=== PATIENT | female | born 1955 | race Caucasian/White ===

== ENCOUNTER 2022-10-23 16:05 | Inpatient (IN) | payer MEDICARE, OTHER ==
[~2022-10-23] VITALS: Ht 152.4 cm; Wt 40.8 kg
--- NOTE | 2022-10-23 16:20 | NUR ---
RECEIVED PT 67 YRS FEMALE CAME FROM HOME BY FARAZ C/O SOB FOR 2 DAYS PT ON HD
--- NOTE | 2022-10-23 16:25 | NUR ---
AV SHUNT ON LT LOWER ARM WITH GOOD BRUITE
--- NOTE | 2022-10-23 16:40 | NUR ---
TO RADULOGY FOR C XRAY
--- NOTE | 2022-10-23 16:40 | NUR ---
Yessy ayala in [facility] - 10/23/22 at [address] SCAN
--- NOTE | 2022-10-23 17:30 | NUR ---
SIM MACIAS SENT TO LAB
--- NOTE | 2022-10-23 17:45 | NUR ---
BLOOD DROW AND SENT TO LAB
[2022-10-23 18:29] LABS: BASOPHILS % (AUTO) 0.6 % (0.0-2.0); HEMATOCRIT 29 % (33-45); HEMOGLOBIN 9.2 g/dL (11.5-14.8); LYMPHOCYTES # (AUTO) 0.6 K/uL (0.8-4.8); LYMPHOCYTES % (AUTO) 8.8 % (20.0-44.0); MEAN CORPUSCULAR HGB CONC 31 g/dl (31.0-36.0); MEAN CORPUSCULAR VOLUME 106 fL (82-100); MONOCYTES # (AUTO) 0.5 K/uL (0.1-1.30); MONOCYTES % (AUTO) 7.4 % (2.0-12.0); NEUTROPHILS # (AUTO) 5.5 K/uL (1.8-8.9); NEUTROPHILS % (AUTO) 81.2 % (43.0-81.0); PLATELET COUNT (AUTO) 191 K/uL (150-450); RED BLOOD CELL COUNT(AUTO) 2.78 MIL/uL (4.0-5.2); WHITE BLOOD COUNT (AUTO) 6.8 K/uL (4.3-11.0)
[2022-10-23 19:08] LABS: ALANINE AMINOTRANSFERASE 9 U/L (12-78); ALBUMIN 2.7 g/dL (3.4-5.0); ALKALINE PHOSPHATASE 117 U/L (46-116); ASPARTATE AMINOTRANSFERASE 16 U/L (15-37); BILIRUBIN,DIRECT 0.1 mg/dL (0.0-0.2); BILIRUBIN,TOTAL 0.3 mg/dL (0.2-1.0); CALCIUM, SERUM 8.9 mg/dL (8.5-10.1); CARBON DIOXIDE 31 mmol/L (21-32); CHLORIDE 105 mmol/L (98-107); CREATININE 2.1 mg/dL (0.6-1.3); GLUCOSE 104 mg/dL (74-106); POTASSIUM 3.4 mmol/L (3.5-5.1); SODIUM SERUM 141 mmol/L (136-145); TOTAL PROTEIN, SERUM 5.9 g/dL (6.4-8.2); UREA NITROGEN, BLOOD 40 mg/dL (7-18)
--- NOTE | 2022-10-23 19:17 | NUR ---
RESTING AND ASLEEPY NO PAIN
--- NOTE | 2022-10-23 19:24 | NUR ---
Yessy ayala in [facility] - 10/23/22 at 1928 by MADELYN JACQUIE WOLFF RN
--- NOTE | 2022-10-23 19:28 | NUR ---
HAND OFF WALLY DYE
[2022-10-23] MEDS ORDERED: LEVOFLOXACIN 750 MG /D5W 150ML PIGGYBACK IV ONE (19:30)
--- NOTE | 2022-10-23 19:46 | NUR ---
RECEIVED REPORT FROM MARNIE NARANJO, PATIENT CAME WITH CC SOB. PATIENT IS IN RA. WITH IV CANNULA G18 ON LEFT AC. ATTACHED TO MONITOR. VITALS CHECKED.
[2022-10-23] MEDS ORDERED: LEVOFLOXACIN 750 MG /D5W 150ML 750 MG in PREMIX 1 EA IV SCH ×2 (20:00→20:45)
[2022-10-23] MEDS ORDERED: Z GUARD REMEDY 4 OZ OINT TP PRN ×2 (20:00→20:45)
[2022-10-23] MEDS ORDERED: ACETAMINOPHEN 325 MG TABLET PO PRN ×2 (20:00→20:45)
[2022-10-23] MEDS ORDERED: ONDANSETRON HCL/PF 4 MG/2 ML VIAL IVP PRN ×2 (20:00→20:45)
[2022-10-23] MEDS ORDERED: ENOXAPARIN SODIUM 30 MG/0.3 ML DISP.SYRIN SQ SCH (20:00)
[2022-10-23] MEDS ORDERED: IPRATROPIUM NEB FS 0.5 MG/2.5 ML AMPUL.NEB NEB PRN ×2 (20:00→20:45)
[2022-10-23] MEDS ORDERED: ALBUTEROL FS 2.5 MG/0.5 ML VIAL.NEB NEB PRN ×2 (20:00→20:45)
[2022-10-23] MEDS ORDERED: FUROSEMIDE 40 MG/4 ML VIAL IV SCH (20:00)
[2022-10-23] MEDS ORDERED: HYDROCODONE/APAP 5/325MG TABLET PO PRN ×2 (20:00→20:45)
[2022-10-23] MEDS ORDERED: LEVOFLOXACIN 750 MG /D5W 150ML 150 ML IV ONE (20:07)
--- NOTE | 2022-10-23 20:29 | NUR ---
Yessy ayala in [facility] - 10/23/22 at 2040 by ALONZO TRANSFERRED PATIENT TO ROOM
--- NOTE | 2022-10-23 20:43 | NUR ---
US TECH AT PT'S BEDSIDE
--- NOTE | 2022-10-23 22:03 | NUR ---
SEEN BY TALIB ROWE AT BEDSIDE
[2022-10-23 22:19] LABS: BAND % (MANUAL) 13 % (0.0-5.0); LYMPHOCYTES % (MANUAL) 17 % (16-48); MONOCYTES % (MANUAL) 13 % (0-11.0); NEUTROPHILS % (MANUAL) 57 (42-76)
--- NOTE | 2022-10-24 00:22 | NUR ---
CALLED RT FOR BIPAP MACHINE
--- NOTE | 2022-10-24 01:05 | NUR ---
REPORT GIVEN TO MARNIE STANLEY
--- NOTE | 2022-10-24 01:21 | NUR ---
COVID PCR DONE AND SENT TO LAB
--- NOTE | 2022-10-24 01:33 | NUR ---
FAMILY DOESNT WANT PATIENT TO BE GIVEN NORCO.
--- NOTE | 2022-10-24 02:18 | NUR ---
CALLED ELIO. PATIENT IS TO BE ADMITTED TO RM 114 INSTEAD OF 101. RN LIZETH IS ASKING ADDITIONAL 30 MINS FOR THE WAIT. RT REJI BEING CALLED, FAMILY WANT TO TALK TO HER
[2022-10-24] MEDS ORDERED: VANCOMYCIN 1.5 GM in IV D5W 500ml IV ONE (03:30)
--- NOTE | 2022-10-24 03:50 | NUR ---
RN ADMITTING NOTE RECEIVED PATIENT FROM ER VIA CHAZ ACCOMPANIED BY RN AND EMT, PT IS AAO X 4, BURUNDIAN SPEAKING ONLY, IN NO ACUTE DISTRESS, ON 2L VIA NC, SATURATION AT 99%, SR ON THE MONITOR, HR IS 83. IV LINE AT LFA 18G PATENT AND FLUSHING WELL, R ARM AV FISTULA IN PLACE, BRUIT AND THRILL NOTED. PATIENT IS ANURIC. COMPREHENSIVE ASSESSMENT DONE, WOUNDS NOTED AT SACRUM, DTI AT L HIP, AND DTI AT R KNEE. REFERRED FOR WOUND CONSULT. SAFETY MEASURES IN PLACE, BED IS LOCKED AND AT LOWEST POSITION, HOB ELEVATED, CALL LIGHT WITHIN REACH OF PATIENT. WILL CONTINUE TO [id number] AND CARRY OUT MD ORDERS.
--- NOTE | 2022-10-24 03:59 | NUR ---
TRANSFERRED TO ROOM VIA ACLS
[2022-10-24 04:00] VITALS: BP 156/60
[2022-10-24] MEDS ORDERED: VANCOMYCIN 1 GM VIAL ONE (04:35)
[2022-10-24] MEDS: ENOXAPARIN SODIUM 30 MG/0.3 ML DISP.SYRIN SQ SCH ×2 (04:40→21:52)
--- NOTE | 2022-10-24 05:40 | NUR ---
RT Late Entry Spoke with patients daughter several times at ER bedside regarding Noc Bipap use. awaited patient to be admitted and placed in room. Bipap settings are unknown by daughter or patient at this time.
--- NOTE | 2022-10-24 05:59 | NUR ---
RT RT just made aware patient was brought to room 114-1, Bipap set up and placed patient on Bipap. MARNIE Daly informed.
[2022-10-24] MEDS ORDERED: PANTOPRAZOLE 40 MG TABLET.DR PO SCH (07:30)
--- NOTE | 2022-10-24 07:30 | NUR ---
RN NOTE RECEIVED PATIENT IN BED RESTING ALERT ORIENTED X4 VERBALLY RESPONSIVE ON 2L OXYGEN VIA NASAL CANNULA O2:96% AT NIGHT TIME BIPAP.IV SITE IS ON LEFT FOREARM INTACT PATENT AND RIGHT ARM AV SHUNT.CONTIENT BOWEL,SAFETY MEASURE IMPLEMENT BED IN LOW POSITION AND LOCKED,CALL LIGHT WITHIN REACH,HEAD OF THE BED ELEVATED, CONTINUE TO MONITOR.
[2022-10-24 08:00] VITALS: BP 140/66
--- NOTE | 2022-10-24 08:00 | NUR ---
RECEIVED PATIENT IS ON BIPAP, AWAKE, ALERT, ORIENTEDX3, NO COMPLAINT OF PAIN, NO SIGNS OF IN DISTRESS.
[2022-10-24] MEDS: PANTOPRAZOLE 40 MG TABLET.DR PO SCH (08:08)
[2022-10-24] MEDS ORDERED: IPRA3AMP23 NEB (08:51)
[2022-10-24] MEDS ORDERED: MYCO500T5 PO (08:51)
[2022-10-24] MEDS ORDERED: PYRI-7 PO (08:51)
[2022-10-24] MEDS ORDERED: DOCU-141 PO (08:51)
[2022-10-24] MEDS ORDERED: AZIT250T13 PO (08:51)
[2022-10-24] MEDS ORDERED: GUAI100S11 PO (08:51)
[2022-10-24] MEDS ORDERED: ACET-868 PO (08:51)
[2022-10-24] MEDS ORDERED: VALS160T29 PO (08:51)
[2022-10-24] MEDS ORDERED: ASPI-1169 PO (08:51)
[2022-10-24] MEDS ORDERED: NIFE90TA38 PO (08:51)
[2022-10-24] MEDS ORDERED: CHOL100043 PO (08:51)
[2022-10-24] MEDS ORDERED: CLON0.3P TD (08:51)
[2022-10-24] MEDS ORDERED: FOLI0.4T6 PO (08:51)
[2022-10-24] MEDS ORDERED: FOLI0.8T2 PO (08:51)
[2022-10-24] MEDS ORDERED: EPOE1VIA7 SQ (08:51)
[2022-10-24] MEDS ORDERED: HYDR100T27 PO (08:51)
[2022-10-24] MEDS ORDERED: MINO2.5T PO (08:51)
[2022-10-24] MEDS ORDERED: SEVE800T8 PO (08:51)
[2022-10-24] MEDS ORDERED: LIDO30AD10 TP (08:51)
[2022-10-24] MEDS ORDERED: LEVO150T8 PO (08:51)
[2022-10-24] MEDS ORDERED: CARV6.252 PO (08:51)
[2022-10-24] MEDS ORDERED: COLL30OI TP (08:51)
[2022-10-24] MEDS: FUROSEMIDE 40 MG/4 ML VIAL IV SCH (09:12)
[2022-10-24 12:00] VITALS: BP 165/61
[2022-10-24 16:00] VITALS: BP 149/64
--- NOTE | 2022-10-24 18:19 | NUR ---
RN NOTE PATIENT REMAINS ALERT ORIENTED X4 VERBALLY RESPONSIVE ON 2L OXYGEN VIA NASAL CANNULA O2:96% NO SOB NOT ACUTE DISTRESS NOTED,ALL DUE MEDS GIVEN MD ORDERED KEPT CLEAN AND DRY ALL THE TIME,KEPT CALL LIGHT WITHIN REACH WILL ENDORSE NEXT COMING SHIFT FOR CONTINUATION OF CARE.
--- NOTE | 2022-10-24 19:15 | NUR ---
RN ADMITTING NOTE PATIENT IN BED, AAO X 4, CROATIAN SPEAKING ONLY, IN NO ACUTE DISTRESS, ON 2L VIA NC, SATURATION AT 97%, SR ON THE MONITOR, HR IS 91. IV LINE AT LFA 18G PATENT AND FLUSHING WELL, R ARM AV FISTULA IN PLACE, BRUIT AND THRILL NOTED. PATIENT IS ANURIC. SAFETY MEASURES IN PLACE, BED IS LOCKED AND AT LOWEST POSITION, HOB ELEVATED, CALL LIGHT WITHIN REACH OF PATIENT. WILL CONTINUE TO [id number] AND CARRY OUT MD ORDERS.
[2022-10-24 20:00] VITALS: BP 160/66
[2022-10-25] VITALS (7 sets, daily range): BP systolic 110–170; BP diastolic 47–70
[2022-10-25 07:06] LABS: BASOPHILS # (AUTO) 0.1 K/uL (0.0-0.2); BASOPHILS % (AUTO) 1.3 % (0.0-2.0); HEMATOCRIT 28 % (33-45); HEMOGLOBIN 8.6 g/dL (11.5-14.8); LYMPHOCYTES # (AUTO) 0.7 K/uL (0.8-4.8); LYMPHOCYTES % (AUTO) 17.4 % (20.0-44.0); MEAN CORPUSCULAR HGB CONC 30 g/dl (31.0-36.0); MEAN CORPUSCULAR VOLUME 106 fL (82-100); MONOCYTES # (AUTO) 0.4 K/uL (0.1-1.30); NEUTROPHILS # (AUTO) 2.6 K/uL (1.8-8.9); NEUTROPHILS % (AUTO) 67.3 % (43.0-81.0); PLATELET COUNT (AUTO) 159 K/uL (150-450); RED BLOOD CELL COUNT(AUTO) 2.68 MIL/uL (4.0-5.2); WHITE BLOOD COUNT (AUTO) 3.9 K/uL (4.3-11.0)
--- NOTE | 2022-10-25 07:18 | NUR ---
RN notes Received patient in bed. She is resting without active complaint. Telemetry showed SR with HR 66/min. IV site is dry and intact. Call schroeder is placed within reach. Bed is locked and placed in the lowest position. All safety measures have been implemented. Will continue monitoring and care.
[2022-10-25 07:40] LABS: ALBUMIN 2.5 g/dL (3.4-5.0); BILIRUBIN,TOTAL 0.3 mg/dL (0.2-1.0); CALCIUM, SERUM 8.7 mg/dL (8.5-10.1); CREATININE 3.9 mg/dL (0.6-1.3); MAGNESIUM 2.4 mg/dL (1.8-2.4); PHOSPHORUS 6.8 mg/dL (2.5-4.9); POTASSIUM 4.9 mmol/L (3.5-5.1); TOTAL PROTEIN, SERUM 5.5 g/dL (6.4-8.2)
[2022-10-25] MEDS ORDERED: VANCOMYCIN 500 MG in IV D5W 100 ML IV PRN (08:00)
[2022-10-25] MEDS: PANTOPRAZOLE 40 MG TABLET.DR PO SCH (08:06)
[2022-10-25] MEDS: FUROSEMIDE 40 MG/4 ML VIAL IV SCH (09:44)
--- NOTE | 2022-10-25 11:00 | NUR ---
RN notes Patient's blood pressure is high, 170/70mmHg. Noted that home medications have not been reconciliated yet. Informed Dr. Maynard.
[2022-10-25 12:18] LABS: EOSINOPHILS % (MANUAL) 3 % (0-4); LYMPHOCYTES % (MANUAL) 20 % (16-48); MONOCYTES % (MANUAL) 7 % (0-11.0); NEUTROPHILS % (MANUAL) 70 (42-76)
[2022-10-25] MEDS ORDERED: ACETAMINOPHEN 325 MG TABLET PO PRN (14:00)
[2022-10-25] MEDS ORDERED: DOCUSATE SODIUM 100 MG CAPSULE PO PRN (14:00)
[2022-10-25] MEDS: VALSARTAN 80 MG TABLET PO SCH ×2 (14:09→16:12)
[2022-10-25] MEDS: MINOXIDIL (2.5MG) 2.5 MG TABLET PO SCH ×2 (14:10→16:13)
[2022-10-25] MEDS: CARVEDILOL 6.25 MG TABLET PO SCH ×2 (14:11→16:12)
[2022-10-25] MEDS: NIFEdipine XL (30MG) 30 MG TAB PO SCH (14:11)
[2022-10-25] MEDS: hydrALAZINE HCL 50 MG TABLET PO SCH ×2 (14:11→16:12)
--- NOTE | 2022-10-25 14:21 | NUR ---
RN notes Medications have been reconciliated. Her usual antihypertensives have been administered. Will recheck blood pressure in an hour.
[2022-10-25] MEDS ORDERED: IPRATROPIUM/ALBUTEROL INHALER IH PRN (14:30)
--- NOTE | 2022-10-25 15:34 | NUR ---
RN notes Rechecked blood pressure, 110/48mmHg. P 80/min. No discomfort reported.
--- NOTE | 2022-10-25 17:30 | NUR ---
RN notes Patient complained SOB. Noted lip cyanosis and SpO2 was only 80% with 2L oxygen via NC, RR 25/min. Increased oxygen to 8L and Spo2 gradually increased to 95%. Decreased oxygen to 5L oxygen via facemask.
[2022-10-25] MEDS: SEVELAMER CARBONATE 800 MG TABLET PO SCH (17:34)
--- NOTE | 2022-10-25 18:00 | NUR ---
RN note Consent for HD is obtained from patient. Patient's SpO2 was 94% with 5L oxygen, RR 20/min.
--- NOTE | 2022-10-25 18:45 | NUR ---
RN notes Patient is resting without signs of distress. Telemetry showed SR with HR 82/min. IV site is dry and intact. Call schroeder is placed within reach. Bed is locked and placed in the lowest position. All safety measures have been implemented. Will continue monitoring and care.
--- NOTE | 2022-10-25 19:30 | NUR ---
RN notes RECEIVED PT IN BED AWAKE. A/O X3, ALBANIAN SPEAKING. ON NC 3L, TOLERATING WELL, NO S/S OF DISTRESS. IV ACCESS SITE DRY AND INTACT. CALL LIGHT WITH REACH, ALL SAFETY MEASURES IMPLEMENTED. WILL CONTINUE TO MONITOR FOR NATALYA.
--- NOTE | 2022-10-25 20:20 | NUR ---
RN NOTE PT PLACED ON NOC BIPAP, SEE RT NOTES FOR SETTINGS
[2022-10-25] MEDS: LEVOFLOXACIN 500 MG /D5W 100ML 500 MG in PREMIX 1 EA IV SCH (21:17)
[2022-10-25] MEDS: ENOXAPARIN SODIUM 30 MG/0.3 ML DISP.SYRIN SQ SCH (21:19)
[2022-10-26] VITALS: BP 163/86
[2022-10-26] MEDS: CLONIDINE HCL 0.1 MG TABLET PO PRN ×2 (02:20→21:16)
[2022-10-26 04:00] VITALS: BP 176/69
--- NOTE | 2022-10-26 04:10 | NUR ---
RN NOTE DIALYSIS HAS STARTED
--- NOTE | 2022-10-26 06:00 | NUR ---
RN NOTE PER LENKA WITH DIALYSIS. VANCO TROUGH WILL HAVE TO BE DRAWN AT 0900. SO HOLD OF ON VANCO.
--- NOTE | 2022-10-26 06:41 | NUR ---
RN CLOSING NOTE PT SLEEPING IN BED. NO SIGNIFICANT CHANGE T/O THE NIGHT. VS STABLE. ALL DUE MEDS GIVEN. PM CARE DONE, TURN AND REPOSITIONED. WILL ENDORSE TO AM SHIFT FOR NATALYA.
--- NOTE | 2022-10-26 07:00 | NUR ---
RN notes RECEIVED PT ON BED AWAKE. A/O X3, MAORI SPEAKING. RECEIVING HD , ON NC 2L, TOLERATING WELL, O2 SAT WNL, NO S/S OF DISTRESS. IV ACCESS SITE DRY AND INTACT. CALL LIGHT WITH REACH, ALL SAFETY MEASURES IMPLEMENTED. BED LOCKED AND IN LOWEST POSITION, WILL CONTINUE TO MONITOR .
[2022-10-26 08:00] VITALS: BP 168/76
[2022-10-26] MEDS: VIT B CMPLX 3/FA/VIT C/BIOTIN 1 TAB TABLET PO SCH (08:13)
[2022-10-26] MEDS: PYRIDOXINE HCL 50 MG TABLET PO SCH (08:13)
[2022-10-26] MEDS: VALSARTAN 80 MG TABLET PO SCH ×2 (08:13→16:59)
[2022-10-26] MEDS: ASPIRIN 81 MG TAB.CHEW PO SCH (08:13)
[2022-10-26] MEDS: SEVELAMER CARBONATE 800 MG TABLET PO SCH ×3 (08:13→17:03)
[2022-10-26] MEDS: NIFEdipine XL (30MG) 30 MG TAB PO SCH (08:14)
[2022-10-26] MEDS: MINOXIDIL (2.5MG) 2.5 MG TABLET PO SCH ×2 (08:14→16:59)
[2022-10-26] MEDS: hydrALAZINE HCL 50 MG TABLET PO SCH ×3 (08:15→16:59)
[2022-10-26] MEDS: LEVOTHYROXINE SODIUM 75 MCG TABLET PO SCH (08:15)
[2022-10-26] MEDS: CHOLECALCIFEROL 1,000 UNIT TABLET (VIT D3) PO SCH (08:15)
[2022-10-26] MEDS: PANTOPRAZOLE 40 MG TABLET.DR PO SCH (08:15)
[2022-10-26] MEDS: CARVEDILOL 6.25 MG TABLET PO SCH ×2 (08:16→16:59)
[2022-10-26] MEDS: FUROSEMIDE 40 MG/4 ML VIAL IV SCH (08:16)
[2022-10-26] MEDS: FOLIC ACID 1 MG TABLET PO SCH (08:16)
[2022-10-26] MEDS: MYCOPHENOLATE MOFETIL 250 MG CAPSULE PO SCH (09:15)
[2022-10-26 09:36] LABS: CREATININE 2.5 mg/dL (0.6-1.3); POTASSIUM 3.4 mmol/L (3.5-5.1)
--- NOTE | 2022-10-26 11:42 | NUR ---
WOUND CARE CONSULT: REVIEWED CHART, NURSING DOCUMENTATION AND PHOTOS WHICH INDICATE SACRAL STAGE 4 PRESSURE ULCER, AND LEFT HIP INTACT DEEP TISSUE INJURY, PRESENT ON ADMISSION. DR NAVYA LILLY CALLED FOR SURGICAL CONSULT. DISCUSSED SKIN PROTECTION WITH NURSING STAFF. IN AGREEMENT WITH PLAN OF CARE.
[2022-10-26 12:00] VITALS: BP 119/55
[2022-10-26] MEDS: DAKINS QUARTER STRENGTH (0.125%) 480 ML BOTTLE TOP SCH (14:09)
[2022-10-26] MEDS: EPOETIN ALFA-EPBX 10,000 UNIT/ML VIAL SQ SCH (14:33)
[2022-10-26] MEDS ORDERED: NEPRO VAN 237 ML CAN PO PRN (15:00)
[2022-10-26 16:00] VITALS: BP 139/54
--- NOTE | 2022-10-26 18:00 | NUR ---
RN NOTES NO SIGNIFICANT CHANGES NOTED ON THIS SHIFT, WILL ENDORSE TO EDUCATIONAL RESOURCE CENTER TEACHER NURSE FOR CONTINUITY OF CARE .
--- NOTE | 2022-10-26 19:30 | NUR ---
PIPE STEM ALIGNER OPENING NOTE RECEIVED PT IN BED AWAKE. A/O X3, MONGOLIAN SPEAKING. ON NC 2L, TOLERATING WELL, NO S/S OF DISTRESS.TELE MONITOR READING SR. IV ACCESS LFA, INTACT AND PATENT. PT ALSO HAS R AVF.ALL SAFETY MEASURES IN PLACE: BED LOCKED AND IN LOWEST POSITION, CALL LIGHT WITHIN REACH, SIDE RAILS UP, BED ALARM ON.WILL CONTINUE TO MONITOR FOR NATALYA.
[2022-10-26 20:00] VITALS: BP 156/43
[2022-10-26] MEDS: ENOXAPARIN SODIUM 30 MG/0.3 ML DISP.SYRIN SQ SCH (21:53)
[2022-10-27] VITALS: BP 107/45
[2022-10-27 04:00] VITALS: BP 141/59
--- NOTE | 2022-10-27 06:45 | NUR ---
AREA DIRECTOR CLOSING NOTES NO SIGNIFICANT CHANGES NOTED ON THIS SHIFT, WILL ENDORSE TO MORNING SHIFT NURSE FOR CONTINUITY OF CARE .
[2022-10-27 07:41] LABS: BASOPHILS % (AUTO) 0.3 % (0.0-2.0); EOSINOPHILS % (AUTO) 0.4 % (0.0-6.0); HEMATOCRIT 34 % (33-45); HEMOGLOBIN 10.3 g/dL (11.5-14.8); LYMPHOCYTES # (AUTO) 0.8 K/uL (0.8-4.8); LYMPHOCYTES % (AUTO) 7.1 % (20.0-44.0); MEAN CORPUSCULAR HGB CONC 31 g/dl (31.0-36.0); MEAN CORPUSCULAR VOLUME 105 fL (82-100); MONOCYTES # (AUTO) 0.6 K/uL (0.1-1.30); MONOCYTES % (AUTO) 5.1 % (2.0-12.0); NEUTROPHILS # (AUTO) 9.4 K/uL (1.8-8.9); NEUTROPHILS % (AUTO) 87.1 % (43.0-81.0); PLATELET COUNT (AUTO) 145 K/uL (150-450); WHITE BLOOD COUNT (AUTO) 10.8 K/uL (4.3-11.0)
[2022-10-27] MEDS: LEVOTHYROXINE SODIUM 75 MCG TABLET PO SCH (07:47)
[2022-10-27] MEDS: PANTOPRAZOLE 40 MG TABLET.DR PO SCH (07:47)
[2022-10-27] MEDS: SEVELAMER CARBONATE 800 MG TABLET PO SCH ×3 (07:47→17:37)
[2022-10-27 08:00] VITALS: BP 116/54
[2022-10-27 08:24] LABS: ALBUMIN 2.6 g/dL (3.4-5.0); BILIRUBIN,TOTAL 0.4 mg/dL (0.2-1.0); MAGNESIUM 2.4 mg/dL (1.8-2.4); PHOSPHORUS 4.8 mg/dL (2.5-4.9); POTASSIUM 4.2 mmol/L (3.5-5.1); TOTAL PROTEIN, SERUM 6.3 g/dL (6.4-8.2)
--- NOTE | 2022-10-27 08:40 | NUR ---
RN NOTE HD IS BEGINNING AT THIS TIME WITH HD NURSE
[2022-10-27] MEDS: CARVEDILOL 6.25 MG TABLET PO SCH ×2 (08:43→17:37)
[2022-10-27] MEDS: hydrALAZINE HCL 50 MG TABLET PO SCH ×3 (08:43→17:38)
[2022-10-27] MEDS: FUROSEMIDE 40 MG/4 ML VIAL IV SCH (08:43)
[2022-10-27] MEDS: VALSARTAN 80 MG TABLET PO SCH ×2 (08:44→17:37)
[2022-10-27] MEDS: NIFEdipine XL (30MG) 30 MG TAB PO SCH (09:00)
[2022-10-27] MEDS: MYCOPHENOLATE MOFETIL 250 MG CAPSULE PO SCH (09:00)
[2022-10-27] MEDS: DAKINS QUARTER STRENGTH (0.125%) 480 ML BOTTLE TOP SCH (09:00)
[2022-10-27] MEDS: MINOXIDIL (2.5MG) 2.5 MG TABLET PO SCH ×2 (09:00→17:37)
--- NOTE | 2022-10-27 10:04 | NUR ---
SW received consult request for stage 4 sacral wound. SW will follow up today.
[2022-10-27] MEDS: PYRIDOXINE HCL 50 MG TABLET PO SCH (10:47)
[2022-10-27] MEDS: CHOLECALCIFEROL 1,000 UNIT TABLET (VIT D3) PO SCH (10:47)
[2022-10-27] MEDS: VIT B CMPLX 3/FA/VIT C/BIOTIN 1 TAB TABLET PO SCH (10:47)
[2022-10-27] MEDS: ASPIRIN 81 MG TAB.CHEW PO SCH (10:47)
[2022-10-27] MEDS: FOLIC ACID 1 MG TABLET PO SCH (10:47)
--- NOTE | 2022-10-27 11:02 | NUR ---
RN NOTE NOTIFIED PHARMACY THAT CELLCEPT MEDICATION IS LOW, AWAITING FOR DELIVERY FOR THE PYXIS
--- NOTE | 2022-10-27 11:03 | NUR ---
RN NOTE HELD 0900 NON BP MEDS, SCANNED, WILL ADMINISTER AFTER DIALYSIS IS COMPLETE
[2022-10-27 12:00] VITALS: BP 110/49
[2022-10-27 16:00] VITALS: BP 142/59
[2022-10-27 17:13] LABS: ABG BASE EXCESS 6.4 mmol/L; ABG OXYGEN SATURATION 78.8 % (92.0-98.5); ABG PCO2 48.3 mmHg (35.0-45.0); ABG PH 7.434 (7.350-7.450); ABG PO2 38.5 mmHg (75.0-100.0); AaDO2 53.4 mmHg; COHb 1.3 % (0.5-1.5); MetHb 0.2 % (0.0-1.5); O2Hb 77.6 % (94.0-97.0); SITE, ABG Left Brachial; VENT MODE, BG room air
--- NOTE | 2022-10-27 19:24 | NUR ---
DIRECTOR OF TECHNOLOGY CLOSING NOTES NO SIGNIFICANT CHANGES NOTED ON THIS SHIFT, WILL ENDORSE TO POOL MANAGER NURSE FOR CONTINUITY OF CARE .
--- NOTE | 2022-10-27 19:30 | NUR ---
PHOTOGRAPHIC DEVELOPER AND PRINTER OPENING NOTE RECEIVED PT IN BED AWAKE. A/O X3, URDU SPEAKING. ON NC 2L, TOLERATING WELL, NO S/S OF DISTRESS.TELE MONITOR READING SR. IV ACCESS LFA, INTACT AND PATENT. PT ALSO HAS R AVF.ALL SAFETY MEASURES IN PLACE: BED LOCKED AND IN LOWEST POSITION, CALL LIGHT WITHIN REACH, SIDE RAILS UP, BED ALARM ON.WILL CONTINUE TO MONITOR FOR NATALYA.
[2022-10-27 20:00] VITALS: BP 136/52
--- NOTE | 2022-10-27 20:00 | NUR ---
This patient is lying in bed. She is alert and oriented. No s/s of distress noted Repositioned.
--- NOTE | 2022-10-27 20:02 | NUR ---
RN NOTE SPOKE WITH DAUGHTER PUT IN A DIETARY ORDER FOR PT NOT EATING DUE TO IT BEING PUREE AND BROTH. AND SPOKE WITH RT FOR BREATHING TREATMENTS Q4H, PATIENT IS ON THE NEBULIZER Q4 AT HOME, AND WOULD LIKE THEM DONE Q4.
--- NOTE | 2022-10-27 20:10 | NUR ---
RN NOTE ASKED FASHION DIRECTOR CHEL TO RESTART VENTOLIN 2.[address] ORDER[address]
--- NOTE | 2022-10-27 20:24 | NUR ---
RN NOTE REPORT GIVEN TO JENN RN FROM REGISTRY.
[2022-10-27] MEDS: LEVOFLOXACIN 500 MG /D5W 100ML 500 MG in PREMIX 1 EA IV SCH (21:52)
[2022-10-27] MEDS: ENOXAPARIN SODIUM 30 MG/0.3 ML DISP.SYRIN SQ SCH (21:54)
[2022-10-28] VITALS: BP 107/42
[2022-10-28] MEDS: ALBUTEROL FS 2.5 MG/0.5 ML VIAL.NEB NEB PRN (01:39)
--- NOTE | 2022-10-28 02:00 | NUR ---
This patient is repositioned. She has been placed on the bipap for the night. No s/s of distress noted.
[2022-10-28 04:00] VITALS: BP 134/51
--- NOTE | 2022-10-28 04:00 | NUR ---
This patient was repositioned from being cleaned after a BM. No s/s of distress noted. Denies pain.
[2022-10-28 07:43] LABS: CALCIUM, SERUM 9.5 mg/dL (8.5-10.1); CREATININE 2.8 mg/dL (0.6-1.3); POTASSIUM 4.5 mmol/L (3.5-5.1)
[2022-10-28] MEDS: PANTOPRAZOLE 40 MG TABLET.DR PO SCH (07:58)
[2022-10-28] MEDS: LEVOTHYROXINE SODIUM 75 MCG TABLET PO SCH (07:58)
[2022-10-28] MEDS: SEVELAMER CARBONATE 800 MG TABLET PO SCH ×3 (07:58→17:14)
[2022-10-28 08:00] VITALS: BP 154/59
--- NOTE | 2022-10-28 08:30 | NUR ---
REFORESTATION WORKER OPENING NOTE RECEIVED PT IN BED AWAKE. A/O X3, MACEDONIAN SPEAKING. ON NC 2L, TOLERATING WELL, NO S/S OF DISTRESS.TELE MONITOR READING SR 95. IV ACCESS LFA, INTACT AND PATENT. PT ALSO HAS R AVF, POSITIVE FOR BRUIT AND THRILL. ALL SAFETY MEASURES IN PLACE: BED LOCKED AND IN LOWEST POSITION, CALL LIGHT WITHIN REACH, SIDE RAILS UP, BED ALARM ON. PLAN OF CARE ON GOING.
--- NOTE | 2022-10-28 09:00 | NUR ---
ANESTHESIOLOGIST NOTES HEMODIALYSIS IS ON GOING, PATIENT TOLERATING IT.PLAN OF CARE CONTINUED
[2022-10-28] MEDS: VALSARTAN 80 MG TABLET PO SCH ×2 (09:25→16:31)
[2022-10-28] MEDS: VIT B CMPLX 3/FA/VIT C/BIOTIN 1 TAB TABLET PO SCH (09:25)
[2022-10-28] MEDS: MYCOPHENOLATE MOFETIL 250 MG CAPSULE PO SCH (09:25)
[2022-10-28] MEDS: FUROSEMIDE 40 MG/4 ML VIAL IV SCH (09:25)
[2022-10-28] MEDS: CHOLECALCIFEROL 1,000 UNIT TABLET (VIT D3) PO SCH (09:25)
[2022-10-28] MEDS: NIFEdipine XL (30MG) 30 MG TAB PO SCH (09:26)
[2022-10-28] MEDS: hydrALAZINE HCL 50 MG TABLET PO SCH ×3 (09:26→16:29)
[2022-10-28] MEDS: ASPIRIN 81 MG TAB.CHEW PO SCH (09:26)
[2022-10-28] MEDS: CARVEDILOL 6.25 MG TABLET PO SCH ×2 (09:27→16:30)
[2022-10-28] MEDS: DAKINS QUARTER STRENGTH (0.125%) 480 ML BOTTLE TOP SCH (09:27)
[2022-10-28] MEDS: FOLIC ACID 1 MG TABLET PO SCH (09:30)
[2022-10-28] MEDS: MINOXIDIL (2.5MG) 2.5 MG TABLET PO SCH ×2 (09:31→16:31)
[2022-10-28] MEDS: PYRIDOXINE HCL 50 MG TABLET PO SCH (09:31)
--- NOTE | 2022-10-28 11:54 | NUR ---
EDITOR CONTINUITY AND SCRIPT NOTES PATIENT OUT FOR CT SCAN
[2022-10-28 12:00] VITALS: BP 136/57
[2022-10-28] MEDS: EPOETIN ALFA-EPBX 10,000 UNIT/ML VIAL SQ SCH (15:35)
[2022-10-28 16:00] VITALS: BP 95/50
--- NOTE | 2022-10-28 18:42 | NUR ---
SOURCING COORDINATOR CLOSING NOTE RECEIVED PT IN BED AWAKE. A/O X3, GREEK SPEAKING. ON NC 2L, TOLERATING WELL, NO S/S OF DISTRESS.TELE MONITOR READING SR, IV ACCESS LFA, INTACT AND PATENT. PT ALSO HAS R AVF, POSITIVE FOR BRUIT AND THRILL. ALL SAFETY MEASURES IN PLACE: BED LOCKED AND IN LOWEST POSITION. AIR BED MATTRESS PLACED. SACRUM WOUND DRESSING NOTED C/D/I. CALL LIGHT WITHIN REACH, SIDE RAILS UP, BED ALARM ON. WILL ENDORSE TO NIGHT NURSE FOR NATALYA.
--- NOTE | 2022-10-28 19:30 | NUR ---
RN OPENING NOTE PT A&OX4 AND MOZAMBICAN SPEAKING. SKIN IS WARM AND DRY. RESPIRATIONS EVEN AND UNLABORED ON 2 LPM NC. R ARM FISTULA PRESENT. NO BP/BLOOD DRAW ON R ARM SIGN PLACED BY BEDSIDE. LFA 18G INTACT AND FLUSHED. DENIES OTHER NEEDS AT THIS TIME. SAFETY PRECAUTIONS IN PLACE. BED LOCKED AND AT LOWEST LEVEL WITH 2 RAILS UP. CALL LIGHT WITHIN REACH.
[2022-10-28 20:00] VITALS: BP 113/45
[2022-10-28] MEDS: ENOXAPARIN SODIUM 30 MG/0.3 ML DISP.SYRIN SQ SCH (21:21)
[2022-10-29] VITALS: BP 96/56
--- NOTE | 2022-10-29 03:35 | NUR ---
RN NOTE PT FOUND WITH BIPAP OFF. STATES THAT SHE NO LONGER WANTS TO WEAR IT. BIPAP TURNED OFF AND PT PLACED BACK ON NC AT 2 LPM.
[2022-10-29 04:00] VITALS: BP_SYST 124; BP_SYST 96; BP_DIAS 52; BP_DIAS 56
[2022-10-29 06:25] LABS: CALCIUM, SERUM 9.3 mg/dL (8.5-10.1); CREATININE 3.3 mg/dL (0.6-1.3); POTASSIUM 4.4 mmol/L (3.5-5.1)
--- NOTE | 2022-10-29 06:48 | NUR ---
RN CLOSING NOTE PT FOUND SLEEPING IN L LATERAL POSITION. SKIN IS WARM AND DRY. RESPIRATIONS EVEN AND UNLABORED ON 2 LPM NC. R ARM FISTULA PRESENT. NO BP/BLOOD DRAW ON R ARM SIGN REMAINS BY BEDSIDE. LFA 18G INTACT AND FLUSHED. DENIES OTHER NEEDS AT THIS TIME. SAFETY PRECAUTIONS IN PLACE. BED LOCKED AND AT LOWEST LEVEL WITH 2 RAILS UP. CALL LIGHT WITHIN REACH.
[2022-10-29 08:00] VITALS: BP 139/57
--- NOTE | 2022-10-29 08:00 | NUR ---
OPERATIONS AGENT OPENING NOTE RECEIVED PT IN BED AWAKE. A/O X3, AMHARIC SPEAKING. ON NC 2L, TOLERATING WELL, NO S/S OF DISTRESS.TELE MONITOR READING SR HR 87. IV ACCESS LFA, INTACT AND PATENT. PT ALSO HAS R AVF, POSITIVE FOR BRUIT AND THRILL. ALL SAFETY MEASURES IN PLACE: BED LOCKED AND IN LOWEST POSITION. AIR BED MATTRESS PLACED. SACRUM WOUND DRESSING NOTED C/D/I. CALL LIGHT WITHIN REACH, SIDE RAILS UP, BED ALARM ON. PLAN ON GOING.
[2022-10-29] MEDS: LEVOTHYROXINE SODIUM 75 MCG TABLET PO SCH (08:12)
[2022-10-29] MEDS: SEVELAMER CARBONATE 800 MG TABLET PO SCH ×3 (08:12→17:11)
[2022-10-29] MEDS: PANTOPRAZOLE 40 MG TABLET.DR PO SCH (08:12)
[2022-10-29] MEDS: MYCOPHENOLATE MOFETIL 250 MG CAPSULE PO SCH (09:01)
[2022-10-29] MEDS: CHOLECALCIFEROL 1,000 UNIT TABLET (VIT D3) PO SCH (09:01)
[2022-10-29] MEDS: FUROSEMIDE 40 MG/4 ML VIAL IV SCH (09:01)
[2022-10-29] MEDS: VIT B CMPLX 3/FA/VIT C/BIOTIN 1 TAB TABLET PO SCH (09:01)
[2022-10-29] MEDS: FOLIC ACID 1 MG TABLET PO SCH (09:01)
[2022-10-29] MEDS: ASPIRIN 81 MG TAB.CHEW PO SCH (09:01)
[2022-10-29] MEDS: PYRIDOXINE HCL 50 MG TABLET PO SCH (09:01)
[2022-10-29] MEDS: DAKINS QUARTER STRENGTH (0.125%) 480 ML BOTTLE TOP SCH (09:02)
[2022-10-29] MEDS: MINOXIDIL (2.5MG) 2.5 MG TABLET PO SCH ×2 (09:23→16:56)
[2022-10-29] MEDS: CARVEDILOL 6.25 MG TABLET PO SCH ×2 (09:23→16:56)
[2022-10-29] MEDS: VALSARTAN 80 MG TABLET PO SCH ×2 (09:23→16:56)
[2022-10-29] MEDS: NIFEdipine XL (30MG) 30 MG TAB PO SCH (09:24)
[2022-10-29] MEDS: hydrALAZINE HCL 50 MG TABLET PO SCH ×3 (09:24→16:55)
[2022-10-29 12:00] VITALS: BP 139/55
[2022-10-29 16:00] VITALS: BP 123/50
--- NOTE | 2022-10-29 18:18 | NUR ---
GUEST SERVICES ATTENDANT CLOSING NOTE RECEIVED PT IN BED AWAKE. A/O X3, KINYARWANDA SPEAKING. ON NC 2L, TOLERATING WELL, NO S/S OF DISTRESS.TELE MONITOR READING SR HR 95, IV ACCESS LFA, INTACT AND PATENT, FLUSHES WELL, PT ALSO HAS R AVF, POSITIVE FOR BRUIT AND THRILL. ALL SAFETY MEASURES IN PLACE: BED LOCKED AND IN LOWEST POSITION. AIR BED MATTRESS PLACED. SACRUM WOUND DRESSING NOTED C/D/I. CALL LIGHT WITHIN REACH, SIDE RAILS UP, BED ALARM ON. WILL ENDORSE TO NIGHT NURSE FOR NATALYA.
--- NOTE | 2022-10-29 19:30 | NUR ---
RN OPENING NOTE PT A&OX4 AND SERBIAN SPEAKING. SKIN IS WARM AND DRY. RESPIRATIONS EVEN AND UNLABORED ON RA. SR ON CIRCLE SAW OPERATOR. R AV FISTULA INTACT. L FOREARM 18 G INTACT AND FLUSHED. NO ACUTE SINS OF DISTRESS. DENIES OTHER NEEDS AT THIS TIME. SAFETY PRECAUTIONS IN PLACE. BED LOCKED AND AT LOWEST LEVEL. X2 RAILS UP AND BED ALARM ON. CALL LIGHT WITHIN REACH.
[2022-10-29 20:00] VITALS: BP 135/46
[2022-10-29] MEDS: LEVOFLOXACIN 500 MG /D5W 100ML 500 MG in PREMIX 1 EA IV SCH (21:59)
[2022-10-29] MEDS: ENOXAPARIN SODIUM 30 MG/0.3 ML DISP.SYRIN SQ SCH (22:14)
[2022-10-29] MEDS: IPRATROPIUM NEB FS 0.5 MG/2.5 ML AMPUL.NEB NEB SCH (23:36)
[2022-10-29] MEDS: ALBUTEROL FS 2.5 MG/3 ML VIAL.NEB NEB SCH (23:36)
[2022-10-30] VITALS: BP 143/52
[2022-10-30 04:00] VITALS: BP 126/54
[2022-10-30] MEDS: ALBUTEROL FS 2.5 MG/3 ML VIAL.NEB NEB SCH ×7 (04:12→23:38)
[2022-10-30] MEDS: IPRATROPIUM NEB FS 0.5 MG/2.5 ML AMPUL.NEB NEB SCH ×7 (04:12→23:38)
--- NOTE | 2022-10-30 06:55 | NUR ---
RN CLOSING NOTE PT A&OX4. SKIN IS WARM AND DRY. RESPIRATIONS EVEN AND UNLABORED ON RA. SR ON SECTION WEAVER. R AV FISTULA INTACT. L FOREARM 18 G INTACT AND FLUSHED. NO ACUTE SIGNS OF DISTRESS. HEMODIALYSIS IN PROGRESS. SAFETY PRECAUTIONS IN PLACE. BED LOCKED AND AT LOWEST LEVEL. X2 RAILS UP AND BED ALARM ON. CALL LIGHT WITHIN REACH.
[2022-10-30 07:11] LABS: CALCIUM, SERUM 9.1 mg/dL (8.5-10.1); CREATININE 4.3 mg/dL (0.6-1.3); POTASSIUM 4.7 mmol/L (3.5-5.1)
--- NOTE | 2022-10-30 07:16 | NUR ---
WOUND CARE FOLLOW UP: PT HAVING HEMODIALYSIS AT THIS TIME. LIMITED ASSESSMENT DUE TO HD IN PROGRESS. LEFT HIP INTACT DEEP TISSUE INJURY/DISCOLORATION CONTINUES TO BE INTACT. SACRAL STAGE 4 ULCER SHOWS LESS YELLOW NECROTIC TISSUE AND NO ODOR NOTED. RECOMMEND CONTINUE PRESENT TREATMENT PLAN. SURGICAL FOLLOW UP NEEDED. DISCUSSED SKIN PROTECTION AND WOUND CARE WITH NURSING STAFF. PT IS CACHECTIC AND IS FOLLOWED BY DIETITIAN. [facility]. IN AGREEMENT WITH PLAN OF CARE.
[2022-10-30 08:00] VITALS: BP 118/54
[2022-10-30] MEDS: DAKINS QUARTER STRENGTH (0.125%) 480 ML BOTTLE TOP SCH (09:00)
[2022-10-30] MEDS: FOLIC ACID 1 MG TABLET PO SCH (10:01)
[2022-10-30] MEDS: SEVELAMER CARBONATE 800 MG TABLET PO SCH ×3 (10:01→17:55)
[2022-10-30] MEDS: ASPIRIN 81 MG TAB.CHEW PO SCH (10:01)
[2022-10-30] MEDS: VIT B CMPLX 3/FA/VIT C/BIOTIN 1 TAB TABLET PO SCH (10:01)
[2022-10-30] MEDS: PYRIDOXINE HCL 50 MG TABLET PO SCH (10:01)
[2022-10-30] MEDS: CHOLECALCIFEROL 1,000 UNIT TABLET (VIT D3) PO SCH (10:02)
[2022-10-30] MEDS: PANTOPRAZOLE 40 MG TABLET.DR PO SCH (10:02)
[2022-10-30] MEDS: MYCOPHENOLATE MOFETIL 250 MG CAPSULE PO SCH (10:02)
[2022-10-30] MEDS: LEVOTHYROXINE SODIUM 75 MCG TABLET PO SCH (10:02)
[2022-10-30 10:21] VITALS: BP 132/68
[2022-10-30] MEDS: CARVEDILOL 6.25 MG TABLET PO SCH ×2 (10:23→17:00)
[2022-10-30] MEDS: hydrALAZINE HCL 50 MG TABLET PO SCH ×3 (10:24→17:00)
[2022-10-30] MEDS: VALSARTAN 80 MG TABLET PO SCH ×2 (10:24→17:00)
[2022-10-30] MEDS: MINOXIDIL (2.5MG) 2.5 MG TABLET PO SCH ×2 (10:24→17:00)
[2022-10-30] MEDS: FUROSEMIDE 40 MG/4 ML VIAL IV SCH (10:25)
[2022-10-30] MEDS: NIFEdipine XL (30MG) 30 MG TAB PO SCH (10:26)
[2022-10-30 12:00] VITALS: BP 126/56
[2022-10-30] MEDS ORDERED: CLONIDINE HCL 0.3 MG/24H PTWK 1 EA PATCH TD SCH (14:00)
[2022-10-30 14:22] LABS: BASOPHILS % (AUTO) 0.9 % (0.0-2.0); HEMATOCRIT 29 % (33-45); LYMPHOCYTES # (AUTO) 0.8 K/uL (0.8-4.8); LYMPHOCYTES % (AUTO) 18.8 % (20.0-44.0); MEAN CORPUSCULAR HGB CONC 31 g/dl (31.0-36.0); MEAN CORPUSCULAR VOLUME 103 fL (82-100); MONOCYTES # (AUTO) 0.5 K/uL (0.1-1.30); MONOCYTES % (AUTO) 11.3 % (2.0-12.0); NEUTROPHILS # (AUTO) 2.8 K/uL (1.8-8.9); PLATELET COUNT (AUTO) 127 K/uL (150-450); RED BLOOD CELL COUNT(AUTO) 2.85 MIL/uL (4.0-5.2); WHITE BLOOD COUNT (AUTO) 4.3 K/uL (4.3-11.0)
[2022-10-30] MEDS: EPOETIN ALFA-EPBX 10,000 UNIT/ML VIAL SQ SCH (15:35)
[2022-10-30 16:00] VITALS: BP 109/45
[2022-10-30] MEDS: ALBUTEROL FS 2.5 MG/0.5 ML VIAL.NEB NEB PRN (16:20)
[2022-10-30] MEDS: ENOXAPARIN SODIUM 30 MG/0.3 ML DISP.SYRIN SQ SCH (21:07)
[2022-10-31] VITALS: BP 113/50
[2022-10-31 00:21] VITALS: BP 121/52
[2022-10-31] MEDS: ALBUTEROL FS 2.5 MG/3 ML VIAL.NEB NEB SCH ×4 (03:44→15:53)
[2022-10-31] MEDS: IPRATROPIUM NEB FS 0.5 MG/2.5 ML AMPUL.NEB NEB SCH ×4 (03:45→15:53)
[2022-10-31 04:00] VITALS: BP 103/50
--- NOTE | 2022-10-31 04:51 | NUR ---
patient refused 0400 vital sgns
[2022-10-31] MEDS: PANTOPRAZOLE 40 MG TABLET.DR PO SCH ×2 (07:30→09:22)
[2022-10-31] MEDS: FOLIC ACID 1 MG TABLET PO SCH (08:56)
[2022-10-31] MEDS: MYCOPHENOLATE MOFETIL 250 MG CAPSULE PO SCH (08:56)
[2022-10-31] MEDS: MINOXIDIL (2.5MG) 2.5 MG TABLET PO SCH ×2 (08:58→09:15)
[2022-10-31] MEDS: SEVELAMER CARBONATE 800 MG TABLET PO SCH ×2 (08:59→09:13)
[2022-10-31] MEDS: VIT B CMPLX 3/FA/VIT C/BIOTIN 1 TAB TABLET PO SCH ×2 (08:59→09:14)
[2022-10-31] MEDS: ASPIRIN 81 MG TAB.CHEW PO SCH ×2 (08:59→09:14)
[2022-10-31] MEDS: hydrALAZINE HCL 50 MG TABLET PO SCH ×2 (09:00→13:18)
[2022-10-31] MEDS: CARVEDILOL 6.25 MG TABLET PO SCH (09:00)
[2022-10-31] MEDS: PYRIDOXINE HCL 50 MG TABLET PO SCH ×2 (09:00→09:15)
[2022-10-31] MEDS: VALSARTAN 80 MG TABLET PO SCH ×2 (09:00→09:14)
[2022-10-31] MEDS: NIFEdipine XL (30MG) 30 MG TAB PO SCH (09:00)
[2022-10-31] MEDS: FUROSEMIDE 40 MG/4 ML VIAL IV SCH (09:01)
[2022-10-31] MEDS: CHOLECALCIFEROL 1,000 UNIT TABLET (VIT D3) PO SCH (09:18)
[2022-10-31] MEDS: DAKINS QUARTER STRENGTH (0.125%) 480 ML BOTTLE TOP SCH (09:20)
[2022-10-31] MEDS: LEVOTHYROXINE SODIUM 75 MCG TABLET PO SCH ×2 (09:23→09:27)
[2022-10-31 11:17] VITALS: BP 134/52
[2022-10-31 13:18] VITALS: BP 111/48
--- NOTE | 2022-10-31 16:22 | NUR ---
Patient discharged. Confirmed Home Care and Dialysis arrangements with hospital Custodial Worker. Discharge package explained ro daughter via telephone. IV removed per protocol without complications. Patient transported off unit via ambulance stretcher.
--- NOTE | 2022-11-02 15:04 | NUR ---
SW made an APS report through [facility] for a stage 4 sacral wound from home. The reference number is [id number].
== END 2022-10-31 16:19 | disposition home health service (06) | DRG 193 ==
LOC: ER 16:07 → TELE1 10-24 01:48
PROVIDERS: ADMIT Nurse Practitioner Acute Care; ATTEND Nurse Practitioner Acute Care
PROC: 5A1D70Z Performance of Urinary Filtration, Intermittent, Less than 6 Hours Per Day (ICD-10-PCS; principal; 2022-10-26)
PROC: 5A09357 Assistance with Respiratory Ventilation, Less than 24 Consecutive Hours, Continuous Positive Airway Pressure (ICD-10-PCS; 2022-10-29)
DX: J15.9 Unspecified bacterial pneumonia (principal); J96.01 Acute respiratory failure with hypoxia; L89.154 Pressure ulcer of sacral region, stage 4; N18.6 End stage renal disease; E44.0 Moderate protein-calorie malnutrition; I12.0 Hypertensive chronic kidney disease with stage 5 chronic kidney disease or end stage renal disease; J44.0 Chronic obstructive pulmonary disease with (acute) lower respiratory infection; R64 Cachexia; D63.8 Anemia in other chronic diseases classified elsewhere; E03.9 Hypothyroidism, unspecified; E11.22 Type 2 diabetes mellitus with diabetic chronic kidney disease; E87.6 Hypokalemia; E88.09 Other disorders of plasma-protein metabolism, not elsewhere classified; G47.33 Obstructive sleep apnea (adult) (pediatric); I27.20 Pulmonary hypertension, unspecified; M06.9 Rheumatoid arthritis, unspecified; M32.9 Systemic lupus erythematosus, unspecified; Z79.624 Long term (current) use of inhibitors of nucleotide synthesis; Z79.82 Long term (current) use of aspirin; Z87.891 Personal history of nicotine dependence; Z88.0 Allergy status to penicillin; Z99.2 Dependence on renal dialysis; M19.90 Unspecified osteoarthritis, unspecified site; Z79.899 Other long term (current) drug therapy; Z88.8 Allergy status to other drugs, medicaments and biological substances
CPT/HCPCS: 36415; 36600; 71045-TC; 71250-TC; 80048-TC; 80053-TC; 80076-TC; 80202-TC; 82803-TC; 83735-TC; 83880; 84100-TC; 84484-TC; 85025-TC; 86140-TC; 86706; 87040-TC; 87081-TC; 87340; 90935-TC; 92526; 92611-TC; 93307-TC; 93970-TC; 94660; 94799-TC; 97112-TC; 97116-TC; 97530-TC; A4216; A6253; A6403; C9803; G0378; J0885; J1650; J1940; J1956; J3370; J3490; J7030; J7050; J7060; J7517; U0003